=== PATIENT | female | born 1940 | race Caucasian/White ===

== ENCOUNTER → 2019-11-19 18:43 | Outpatient (BNVA) | payer MEDICARE, OTHER, SELFPAY | PROVIDERS: Family Provider Family Medicine; Visit Provider Nurse Practitioner | DX: N39.0 Urinary tract infection, site not specified (principal) | CPT/HCPCS: 81000 ==

== ENCOUNTER 2019-12-27 16:40 | Emergency (ER) | payer MEDICARE, OTHER, SELFPAY ==
[2019-12-27 16:45] VITALS: BP 124/62; PULSE 102; RESP 18; TEMP 36.4; O2SAT 94; BMI 32.3
[2019-12-27 18:38] LABS: Basophils # 0.1 10^3/uL (0.0-0.1); Basophils % 0.4 %; Eosinophils % 0.4 %; Hematocrit 39.7 % (37.0-47.0); Hemoglobin 12.1 g/dL (11.5-15.3); Lymphocytes # 1.3 10^3/uL (0.8-4.8); Lymphocytes % 11.8 %; Mean Corpuscular HGB Conc 30.5 g/dL (30.0-36.0); Mean Corpuscular Hemoglobin 25.9 pg (28.0-34.0); Mean Corpuscular Volume 84.8 fL (81-99); Mean Platelet Volume 9.5 fL (7.4-10.4); Monocytes # 1.4 10^3/uL (0.2-0.9); Monocytes % 12.6 %; Neutrophils # 8.46 10^3/uL (1.8-7.7); Neutrophils % 74.3 %; Nucleated Red Blood Cells % 0 %; Platelet Count 254 10^3/cmm (130-400); Red Blood Count 4.68 10^6/uL (4.1-5.3); Red Cell Distribution Width 16.4 % (12.1-15.1); White Blood Count 11.4 10^3/uL (4.0-10.0)
--- NOTE | 2019-12-27 19:07 | ED_ITS ---
HPI - Nausea/Vomiting/Diarrhea General: Chief complaint: Nausea/Vomiting/Diarrhea Stated complaint: N/D Time Seen by Provider: 12/27/19 18:56 Source: patient Mode of arrival: ambulatory Limitations: no limitations History of Present Illness: HPI Narrative: 79-year-old female who has a history of Crohn's who states she is to be on Humira and her physician stopped her Humira 3 weeks ago and started on Entyvio. She states that since then she has had started her new medicine she has had constant diarrhea for 3 weeks. She states she has had increasing diarrhea over the last 3 weeks but states she has had chronic diarrhea. She believes her new medicine changes made it worse and she is feeling dehydrated. She denies any fever or abdominal pain. MD elicited complaint: nausea Associated nausea: Yes Associated symtoms: Reports nausea; Denies chest pain, dysuria or headache(s) Review of Systems Const: Denies: fever(s), chills, body aches or change in appetite Eyes: Denies: blurry vision or eye discomfort ENMT: Denies: throat pain or dental pain Card: Denies: chest pain Resp: Denies: dyspnea GI: Reports: nausea and diarrhea : Denies: dysuria Musc: Denies: neck pain or back pain Skin/Breast: Denies: rash Neuro: Denies: headache(s) Psych: Denies: depression Nghia/Lymph: Denies: easy bruising All/Imm: Denies: urticaria PFSH ED PFSH: Social History Smoking and tobacco status: never smoked Alcohol intake: never History of recent travel: No Course Vital Signs: Vital signs: Vital Signs Temperature 97.5 F L 12/27/19 16:45 Pulse Rate 94 12/27/19 22:11 Respiratory Rate 16 12/27/19 22:11 Blood Pressure 115/63 12/27/19 22:11 Pulse Oximetry 92 12/27/19 22:11 MDM - Nausea/Vomiting/Diarrhea MDM Narrative: Medical decision making narrative: Patient presents with diarrhea likely medication related. I spoke to GI on-call Dr. Huntley who states that he will leave a note for Dr. Garcia to call patient tomorrow. Patient feels improved here and was given IV fluids. Patient has no signs of C. difficile or stool infection but will test for both. She is stable for discharge and return if worsening. Lab Data: Labs: Lab Results 12/27/19 12/27/19 12/27/19 Range/Units 18:30 18:30 18:30 WBC 11.4 H (4.0-10.0) 10^3/ uL RBC 4.68 (4.1-5.3) 10^6/u L Hgb 12.1 (11.5-15.3) g/dL Hct 39.7 (37.0-47.0) % MCV 84.8 (81-99) fL MCH 25.9 L (28.0-34.0) pg MCHC 30.5 (30.0-36.0) g/dL RDW 16.4 H (12.1-15.1) % Plt Count 254 (130-400) 10^3/c mm MPV 9.5 (7.4-10.4) fL Neut % (Auto) 74.3 % Lymph % (Auto) 11.8 % Schleicher % (Auto) 12.6 % Eos % (Auto) 0.4 % Baso % (Auto) 0.4 % Neut # (Auto) 8.46 H (1.8-7.7) 10^3/u L Lymph # (Auto) 1.3 (0.8-4.8) 10^3/u L Schleicher # (Auto) 1.4 H (0.2-0.9) 10^3/u L Eos # (Auto) 0.0 (0.0-0.8) 10^3/u L Baso # (Auto) 0.1 (0.0-0.1) 10^3/u L Nucleated RBC % (a uto) 0 % Nucleated RBCs # 0.0 /100WBC Sodium 132 L (136-145) mmol/L Potassium 3.3 L (3.5-5.1) mmol/L Chloride 95 L (98-107) mmol/L Carbon Dioxide 22 (22-29) mmol/L Anion Gap 18.3 (5-19) BUN 33 H (8-23) mg/dL Creatinine 1.1 H (0.5-0.9) mg/dL GFR Calculation Not Reportable Glucose 174 H (65-115) mg/dL Calculated Osmolal ity 275 L (285-295) mOsm/k g Lactate 1.8 (0.5-2.2) mmol/L Calcium 9.0 (8.5-10.5) mg/dL Total Bilirubin 1.7 H (0.15-1.2) mg/dL AST 11 (0-32) U/L ALT 13 (0-33) U/L Alkaline Phosphata se 66 (35-105) IU/L Total Protein 7.2 (6.6-8.7) g/dL Albumin 3.7 (3.5-5.2) g/dL Globulin 3.5 (1.3-4.6) g/dL Lipase 9 L (13-60) U/L Discharge Plan Discharge Patient Disposition: Home, Self-Care Clinical Impression: Diarrhea Qualifiers: Diarrhea type: unspecified type Qualified Code(s): R19.7 - Diarrhea, unspecified Condition: Stable Prescriptions: No Action levothyroxine 88 mcg capsule 88 mcg PO DAILY RF: 0 hydrochlorothiazide 25 mg tablet 25 mg PO DAILY RF: 0 Complete Multivitamin Tablet 1 tab PO DAILY RF: 0 latanoprost 0.005 % drops 1 drp ophthalmic (eye) BEDTIME RF: 0 Tylenol 325 mg Tablet 325 mg PO QID PRN (Reason: Pain) RF: 0 prednisone 5 mg tablet See Rx Instructions .ROUTE .COMPLEX RF: 0 Discharge Orders: Discharge Order (Routine); Ordered 12/27/19 Ordered By: Orlin Sánchez Referrals: Vini Ruano Jr, MD [Primary Care Provider] - 1-3 days Discharge Diet: Advance as tolerated Discharge Activity: Resume usual activity Patient Instructions: Chronic Diarrhea (ED) Discharge Date/Time: 12/27/19 22:17 Coding Level of Care Code ED Building Construction Teacher for Leif Joy
[2019-12-27 19:16] LABS: Lactate (Lactic Acid level) 1.8 mmol/L (0.5-2.2)
[2019-12-27 19:23] LABS: Alanine Aminotransferase 13 U/L (0-33); Albumin Level 3.7 g/dL (3.5-5.2); Alkaline Phosphatase 66 IU/L (35-105); Anion Gap 18.3 (5-19); Aspartate Amino Transferase 11 U/L (0-32); Blood Urea Nitrogen 33 mg/dL (8-23); Carbon Dioxide 22 mmol/L (22-29); Chloride 95 mmol/L (98-107); Globulin 3.5 g/dL (1.3-4.6); Glucose 174 mg/dL (65-115); Lipase 9 U/L (13-60); Osmolality Calculated 275 mOsm/kg (285-295); Potassium 3.3 mmol/L (3.5-5.1); Sodium 132 mmol/L (136-145); Total Bilirubin 1.7 mg/dL (0.15-1.2); Total Protein 7.2 g/dL (6.6-8.7)
[2019-12-27 19:44] VITALS: BP 108/62; PULSE 93; RESP 18; O2SAT 91
[2019-12-27] MEDS: sodium chloride 0.9% 1,000 ML 999 ML IV (19:57)
[2019-12-27] MEDS: ondansetron 2 mg/ML SDV 2 mL 4 MG IVP (19:59)
[2019-12-27 20:00] VITALS: BP 125/61; PULSE 87; RESP 16; O2SAT 92
[2019-12-27] MEDS: diphenoxylate/atropine Tablet 1 TAB PO (21:55)
[2019-12-27 22:11] VITALS: BP 115/63; PULSE 94; RESP 16; O2SAT 92
[2019-12-27 22:49] LABS: Add Urine Culture? Yes; Add Urine Microscopic? YES; Bacteria Urine 4+; Bilirubin Urine 1+ (NEGATIVE); Blood Urine 2+ (Negative); Glucose Urine UA Norm (Normal); Hyaline Casts Urine 0-4; Ketones Urine Negative (Negative); Leukocyte Esterase Urine 2+ (Negative); Nitrate Urine Positive (Negative); Protein Urine 1+ (Negative); Urine Appearance Cloudy (CLEAR); Urine Color Yellow (Yellow); Urobilinogen Urine Norm (Negative); WBC Urine >100 /hpf (0-5); pH Urine 5 (5-7)
== END 2019-12-27 22:17 | disposition home or self-care (01) ==
PROVIDERS: Nurse Practitioner Family; Emergency Provider Emergency Medicine; PCP Family Medicine
DX: R19.7 Diarrhea, unspecified (principal); Z79.899 Other long term (current) drug therapy
CPT/HCPCS: 12345; 36415; 80053; 81001; 81003; 83605; 83690; 85025; 87077; 87086; 87186; 87493; 87506; 96360; 96361; 96374; 96375; 99283; J2405; J7030

== ENCOUNTER 2020-02-27 13:21 | Outpatient (CLI) | payer MEDICARE, OTHER, SELFPAY ==
--- NOTE | 2020-02-27 13:26 | XR_ITS ---
WS: [id number] RIGHT HIP HISTORY: PAIN IN RIGHT HIP COMPARISON: None available. Right hip: No acute fracture or dislocation. Moderate narrowing of the RIGHT hip joint. Mild osteophy tic ridging around the acetabulum and osteopenia. Mild narrowing and degenerative changes at the RIGHT SI joint. XR/XR hip RT 2-3V wo/w pel* 70332 IMPRESSION: 1. No hip fracture. 2. Moderate osteoarthritis RIGHT hip joint.
== END 2020-02-27 13:22 | disposition home or self-care (01) ==
LOC: RADWPI 13:25
PROVIDERS: Family Provider Family Medicine; PCP Family Medicine; Visit Provider Family Medicine
DX: M16.11 Unilateral primary osteoarthritis, right hip (principal)
CPT/HCPCS: 73502

== ENCOUNTER → 2020-03-07 16:00 | Outpatient (BNVA) | payer MEDICARE, OTHER, SELFPAY | PROVIDERS: Family Provider Family Medicine; PCP Family Medicine; Visit Provider Nurse Practitioner Family | DX: N39.0 Urinary tract infection, site not specified (principal); R82.71 Bacteriuria | CPT/HCPCS: 80053; 81001 ==

== ENCOUNTER → 2020-04-23 14:14 | Outpatient (BNVA) | payer MEDICARE, OTHER, SELFPAY | PROVIDERS: Family Provider Family Medicine; PCP Family Medicine; Visit Provider Urology | DX: N39.0 Urinary tract infection, site not specified (principal); B37.3 Candidiasis of vulva and vagina | CPT/HCPCS: 81003; 87086 ==

== ENCOUNTER → 2020-06-25 10:45 | Outpatient (BNVA) | payer MEDICARE, OTHER, SELFPAY | PROVIDERS: Family Provider Family Medicine; PCP Nurse Practitioner; Visit Provider Urology | DX: N39.0 Urinary tract infection, site not specified (principal) | CPT/HCPCS: 81003 ==

== ENCOUNTER → 2020-09-25 10:57 | Outpatient (BNVA) | payer MEDICARE, OTHER, SELFPAY | PROVIDERS: Family Provider Family Medicine; PCP Nurse Practitioner; Visit Provider Urology | DX: N39.0 Urinary tract infection, site not specified (principal) | CPT/HCPCS: 81003 ==

== ENCOUNTER → 2021-03-13 13:53 | Outpatient (BNVA) | payer MEDICARE, OTHER, SELFPAY | PROVIDERS: Family Provider Family Medicine; PCP Nurse Practitioner; Visit Provider Podiatrist Foot & Ankle Surgery | DX: M20.42 Other hammer toe(s) (acquired), left foot (principal); M19.072 Primary osteoarthritis, left ankle and foot | CPT/HCPCS: 73630 ==

== ENCOUNTER → 2021-04-14 08:02 | Outpatient (BNVA) | payer MEDICARE, OTHER, SELFPAY | PROVIDERS: Family Provider Family Medicine; PCP Nurse Practitioner; Visit Provider Podiatrist Foot & Ankle Surgery | DX: Z01.818 Encounter for other preprocedural examination (principal); Z20.822 Contact with and (suspected) exposure to COVID-19; M89.8X7 Other specified disorders of bone, ankle and foot; M20.42 Other hammer toe(s) (acquired), left foot; M79.672 Pain in left foot | CPT/HCPCS: 87635 ==

== ENCOUNTER 2021-04-18 06:26 | Day surgery (SDC) | payer MEDICARE, OTHER, SELFPAY ==
[2021-04-17 16:34] VITALS: BMI 32.3
--- NOTE | 2021-04-18 | SCC_ITS ---
Procedure Done: Exostectomy left foot CPT 74087 Left second hammertoe correction CPT 87874 Left second toenail avulsion CPT code 64469 1 second of fluoroscopic guidance, for a cumulative dose of 0.010 mGy, was provided to Dr. Huizar by the radiology department. C-arm images of the left toes were saved for the patient's permanent record. [facility]
[2021-04-18 06:37] VITALS: BP 128/92; PULSE 65; RESP 16; TEMP 36.6; O2SAT 96
--- NOTE | 2021-04-18 07:19 | ANES.PREANE2 ---
Pre-Anesthetic Assessment Pre-Anesthetic Assessment: Height/Weight: Height 1.68 m Weight 90.718 kg Temp Pulse Resp BP Pulse Ox 97.8 F 65 16 128/92 96 04/18/21 06:37 04/18/21 06:37 04/18/21 06:37 04/18/21 06:37 04/18/21 06:37 Preop Diagnosis: Second hammertoe, exostosis and onychodystrophy all left foot Proposed Procedure: Operation Date: 04/18/21 07:50 Proposed Procedures p Hammertoe Correction 2nd toe(Left) - Tulio Huizar DPM s Exostectomy(Left) - [place] Ignacio Matrixectomy(Left) - Tulio Huizar DPM Familial anesthetic complications: none Was Beta Kenyon taken within 24 hours: N/A Was Clonidine taken within 24 hours: N/A Last intake: Intake Last Liquid Date 04/17/21 Last Liquid Time 17:30 Last Solid Date 04/17/21 Last Solid Time 17:30 Social: Social History: No alcohol and No tobacco Exam: Pre-Anes Outpt Exam: alert, oriented x 3, clear to auscultation bilaterally and regular rate & rhythm Airway: Cervical ROM: WNL MP: 4 Dentition: False and Partials Additional comments: small mouth opening CV/HEM: CV/HEM: HTN GI: Comments: crohn's disease Metabolic: Metabolic: Thyroid Anesthetic Plan: ASA status: 3 Anesthesia: MAC Risk of > 500 ml blood loss (7ml/kg in children): No PFSH Anesthesia PFSH: Medical History Atrophic vaginitis Crohn's colitis Diverticulosis HTN (hypertension) Hypothyroidism Recurrent UTI Yeast vaginitis Surgical History H/O: hysterectomy History of eyelid surgery Hx of appendectomy Hx of cataract surgery Hx of colectomy Hx of thyroidectomy Hx of total knee arthroplasty S/P cholecystectomy Family History Father , at age 78 CHF (congestive heart failure) Mother , at age 104 No problems noted. Social History Alcohol intake: never Marital status: Current occupational status: retired History of recent travel: No Data Anesthesia Cardiac Studies: No Data to Display
[2021-04-18] MEDS: sodium chloride 0.9% 1,000 ML 30 ML IV (07:22)
--- NOTE | 2021-04-18 07:36 | W.PM.OPSUD ---
Surgery/Procedure H&P Update DATE OF PROCEDURE: April 18, 2021 DATE H&P PERFORMED: 04/14/21 H&P UPDATE INFORMATION: I have reviewed H&P completed within last 30 days, I have examined patient prior to procedure, No changes to prior documentation and H&P is in [facility] EMR on date indicated PREOP DIAGNOSIS: Second hammertoe, exostosis and onychodystrophy all left foot PLANNED PROCEDURE: Operation Date: 04/18/21 07:50 Proposed Procedures p Hammertoe Correction 2nd toe(Left) - Tulio Huizar DPM s Exostectomy(Left) - [place] Ignacio Matrixectomy(Left) - Tulio Huizar DPM
[2021-04-18] MEDS: lidocaine 1% INJ 20 mL INJECTION (08:27)
[2021-04-18 08:39] LABS: Anion Gap 16.5 (5-19); Blood Urea Nitrogen 27 mg/dL (8-23); Calcium 8.7 mg/dL (8.5-10.5); Carbon Dioxide 22 mmol/L (22-29); Chloride 101 mmol/L (98-107); Creatinine Clr Calc Pharmacy 61.5113; Glucose 126 mg/dL (65-115); Osmolality Calculated 287 mOsm/kg (285-295); Potassium 4.5 mmol/L (3.5-5.1); Sodium 135 mmol/L (136-145)
[2021-04-18 09:00] VITALS: BP 121/66; PULSE 68; RESP 15; TEMP 36.6; O2SAT 93
--- NOTE | 2021-04-18 09:03 | XR_ITS ---
WS: [id number] Left foot, 3 views, 04/18/2021 Clinical Data: post op Comparison: Left foot, 03/13/2021. Findings: No fractures or dislocations are seen. No bone destruction or erosion is noted. The patient has a sup port surrounding the foot. Toes are in extension.A plantar spur and small Achilles spur are seen nia jenkins XR/XR foot LT min 3V* [id number] Impression: Toes of the left foot are in extension.
[2021-04-18 09:05] VITALS: BP 126/67; PULSE 65; RESP 18; O2SAT 93
--- NOTE | 2021-04-18 09:08 | P.OP_ITS ---
Operative Report Date of procedure: April 18, 2021 Pre-op Diagnosis: Second hammertoe, exostosis and onychodystrophy all left foot Post-op diagnosis: same Procedure Done: Exostectomy left foot CPT 42972 Left second hammertoe correction CPT 56051 Left second toenail avulsion CPT code 33137 Implants: 3-0 Vicryl, 4-0 Vicryl, 4-0 nylon, Pinehill 28 Hammer tube 2.75 mm 0 degree Pathology: none sent Surgeon: Tulio Huizar D.P.M. Weight Loss Sales Consultant: Inge Anesthesia: MAC Estimated blood loss: 5 Tourniquet time: 31 IV fluids: 0 Urine output: 0 Complications: None Findings: None Condition: stable Disposition: PACU Brief History: Patient is a pleasant 80-year-old female has had persistent pain at her left second hammer toe with everyday activities she also has a painful bump at the dorsum of her left midfoot and a dystrophic left second toenail. Would like to have each of these addressed surgically as she has failed conservative measures consisting of rest, activity modifications, shoe gear modification with extra-depth and with, padding and spacing and anti- inflammatories. Risks include pain, bleeding, numbness, infection, hardware failure, delayed union, malunion, nonunion recurrence of deformity and recurrence of exostosis, expecting regrowth of toenail to be similar to previous growth as this was a toenail avulsion only. Patient is agreeable wishes to proceed, informed consent signed by patient and myself, I initialed her left foot, no guarantees written, expressed or implied, Covid screening negative. Procedure: Under mild sedation the patient was brought to the operating room and remained on the gurney in supine position. A timeout was performed. Anesthesia was then administered by the anesthesia service. Local anesthesia injected by myself consisting of 30 cc of 1% lidocaine and 0.5% Marcaine in a one-to-one mixture this was then a proximal Beltran block and second ray block of the left foot. Well-padded pneumatic tourniquet applied to the left ankle. Left lower extremity was then scrubbed, prepped and draped utilizing normal aseptic technique. Foot and ankle wrapped at the left lower extremity with an Esmarch bandage and the tourniquet inflated to 250 mmHg. Attention was directed to the left dorsal foot where an osseous exostosis was palpated and visualized at the base of the first metatarsal medial cuneiform joint directly over this exostosis a linear longitudinal incision made with a #15 blade. Dissection was carried down to periosteum utilizing accommodation of blunt and sharp technique. Care was taken to retract and preserve neurovascular and tendinous structures. All bleeders were ligated and cauterized as necessary. Periosteal incision was made and bony exostosis was excised with a osteotome smoothed with a bone rasp and passed from operative field. Incision was flushed with saline solution and closed in a layered fashion with 3-0 Vicryl periosteum, 4-0 Vicryl in subcutaneous tissue and 4-0 nylon at skin. Attention was directed to the dorsal aspect of the left second toe where 2 semielliptical incisions converging were performed with a skin bridge being excised and a transverse tenotomy and capsulotomy at the proximal interphalangeal joint head of the proximal phalanx was freed from its soft tissue attachments and transected perpendicular to its longitudinal axis followed by the base of the intermediate phalanx incision was flushed with saline solution followed by arthrodesis with excellent bony apposition and compression noted utilizing a [place]hill 28 hammer tube 2.75 mm 0 degree. Positioning confirmed with fluoroscopy noted to be excellent in all 3 planes. Incision was then flushed with saline solution, extensor tendon reapproximated with 4-0 Vicryl and skin closed with 4-0 nylon. Attention was then directed to the distal aspect of the left second toe where a Marianna elevator was utilized to free the left second toenail of soft tissue attachments this was avulsed in total and passed from the operative field. Incision sites were dressed with Adaptic, sterile 4 x 4, Kerlix, Vicente wrap. Tourniquet was deflated and a prompt hyperemic response was noted to the distal digits of the left foot. Patient tolerated the procedure and anesthesia well was transferred to the PACU with vital signs stable vascular status intact. Following a period of postoperative monitoring she will be discharged home may be protected weightbearing with a postop shoe was given at home discharge instructions at home care and follow-up next Wednesday at 8 AM in podiatry clinic for her first dressing change. Was prescribed hydrocodone 10/325 mg to be taken judiciously as needed for pain every 6 hours. This was sent electronically to [facility].
[2021-04-18 09:10] VITALS: BP 134/79; PULSE 70; RESP 22; TEMP 36.7; O2SAT 95
[2021-04-18 09:16] VITALS: BP 134/79; PULSE 68; RESP 16; TEMP 36.3; O2SAT 95
[2021-04-18 09:40] VITALS: BP 133/62; PULSE 62; RESP 18; TEMP 36.4; O2SAT 97
--- NOTE | 2021-04-18 10:34 | ECG_ITS ---
[facility] Test Date: 2021-04-18 Pat Name: Bibi Billings Department: Room: Gender: Female End Trimmer: : 1940 Requested By: Estelita Dutotn Order Number: [id number] Vini MD: Jose Wong M.D. Measurements Intervals [place] Rate: 66 P: 61 MI: 175 QRS: -13 QRSD: 90 T: 11 QT: 412 QTc: 433 Interpretive Statements SINUS RHYTHM LOW QRS VOLTAGE IN PRECORDIAL LEADS [QRS DEFLECTION < 1.0 mV IN CHEST LEADS] Compared to ECG 04/16/2018 23:21:39 Sinus bradycardia no longer present Electronically Signed On 04-18-2021 19:51:46 DIGITAL PRINTER by Jose Wong M.D. [id number]
--- NOTE | 2021-04-18 14:19 | ANE.PACU2 ---
Inpatient post-anesthesia follow up: Airway intact: Yes Vital signs: Temperature 97.6 F Pulse Rate 62 Respiratory Rate 18 Blood Pressure 133/62 Pulse Oximetry 97 Oxygen Delivery Me thod Room Air Oxygen Flow Rate Fraction of Inspir ed Oxygen Hydration adequate: Yes Nausea and vomiting: No Pain level: 2 Mental status: Baseline
== END 2021-04-18 09:55 | disposition home or self-care (01) ==
PROVIDERS: Anesthesiology; PCP Nurse Practitioner; Visit Provider Podiatrist Foot & Ankle Surgery
PROC: (CPT 28285; principal; 2021-04-18 07:45)
PROC: (CPT 28288; 2021-04-18 07:45)
PROC: (CPT 11750; 2021-04-18 07:45)
DX: M79.672 Pain in left foot (principal); M89.8X7 Other specified disorders of bone, ankle and foot; L60.3 Nail dystrophy; I10 Essential (primary) hypertension; E03.9 Hypothyroidism, unspecified
CPT/HCPCS: 11730; 28288; 28308; 73630; 76000; 80048; 93005; C1713; J0690; J2704; J3010; J3490; J7030

== ENCOUNTER → 2021-05-06 13:04 | Outpatient (BNVA) | payer MEDICARE, OTHER, SELFPAY | PROVIDERS: PCP Nurse Practitioner; Visit Provider Podiatrist Foot & Ankle Surgery | DX: Z98.890 Other specified postprocedural states (principal) | CPT/HCPCS: 73630 ==

== ENCOUNTER → 2021-05-22 11:11 | Outpatient (BNVA) | payer MEDICARE, OTHER, SELFPAY | PROVIDERS: PCP Nurse Practitioner; Visit Provider Podiatrist Foot & Ankle Surgery | DX: Z48.89 Encounter for other specified surgical aftercare (principal); Z98.890 Other specified postprocedural states; M20.42 Other hammer toe(s) (acquired), left foot; M89.8X7 Other specified disorders of bone, ankle and foot | CPT/HCPCS: 73630 ==

== ENCOUNTER → 2021-06-05 14:03 | Outpatient (BNVA) | payer MEDICARE, OTHER, SELFPAY | PROVIDERS: PCP Nurse Practitioner; Visit Provider Podiatrist Foot & Ankle Surgery | DX: Z98.890 Other specified postprocedural states (principal); Z98.1 Arthrodesis status | CPT/HCPCS: 73630 ==

== ENCOUNTER → 2021-07-14 09:35 | Outpatient (BNVA) | payer MEDICARE, OTHER, SELFPAY | PROVIDERS: PCP Nurse Practitioner; Visit Provider Podiatrist Foot & Ankle Surgery | DX: Z98.890 Other specified postprocedural states (principal) | CPT/HCPCS: 73630 ==

== ENCOUNTER → 2022-04-07 10:57 | Outpatient (BNVA) | payer MEDICARE, OTHER, SELFPAY | PROVIDERS: PCP Nurse Practitioner; Visit Provider Urology | DX: R33.9 Retention of urine, unspecified (principal); N39.0 Urinary tract infection, site not specified | CPT/HCPCS: 81003; 87086; 99213 ==

== ENCOUNTER → 2022-04-14 10:51 | Day surgery (SDC) | payer MEDICARE, OTHER, SELFPAY ==
[2022-04-14 11:00] VITALS: BP 131/65; PULSE 76; RESP 18; TEMP 36.8; O2SAT 100
[2022-04-14] MEDS: ferric carboxy (IVPB) 750 MG in sodium chloride 0.9% (100 ml) 100 ML 275 MG IV (11:48)
== END ==
PROVIDERS: PCP Nurse Practitioner; Visit Provider Family Medicine
DX: D64.9 Anemia, unspecified (principal)
CPT/HCPCS: 96365; J1439

== ENCOUNTER → 2022-04-21 10:29 | Day surgery (SDC) | payer MEDICARE, OTHER, SELFPAY ==
[2022-04-21 10:40] VITALS: BP 140/70; PULSE 72; RESP 18; TEMP 36.3; O2SAT 99
[2022-04-21] MEDS: ferric carboxy (IVPB) 750 MG in sodium chloride 0.9% (100 ml) 100 ML 345 MG IV (10:49)
== END ==
PROVIDERS: PCP Family Medicine; Visit Provider Family Medicine
DX: D64.9 Anemia, unspecified (principal)
CPT/HCPCS: 96365; J1439

== ENCOUNTER → 2022-06-30 09:23 | Outpatient (BNVA) | payer MEDICARE, OTHER, SELFPAY | PROVIDERS: PCP Family Medicine; Visit Provider Podiatrist Foot & Ankle Surgery | DX: I73.9 Peripheral vascular disease, unspecified (principal); L97.521 Non-pressure chronic ulcer of other part of left foot limited to breakdown of skin; L60.3 Nail dystrophy | CPT/HCPCS: 99213 ==

== ENCOUNTER → 2022-09-30 12:49 | Outpatient (BNVA) | payer MEDICARE, OTHER, SELFPAY | PROVIDERS: PCP Family Medicine; Visit Provider Podiatrist Foot & Ankle Surgery | DX: I73.9 Peripheral vascular disease, unspecified (principal); L60.8 Other nail disorders; L60.3 Nail dystrophy; L84 Corns and callosities | CPT/HCPCS: 11721 ==

== ENCOUNTER → 2022-11-25 13:11 | Outpatient (BNVA) | payer MEDICARE, OTHER, MEDICAID, SELFPAY | PROVIDERS: PCP Family Medicine; Visit Provider Podiatrist Foot & Ankle Surgery | DX: I73.9 Peripheral vascular disease, unspecified (principal); L60.8 Other nail disorders; L60.3 Nail dystrophy; L84 Corns and callosities | CPT/HCPCS: 11055; 11721 ==

== ENCOUNTER → 2023-01-18 13:40 | Outpatient (BNVA) | payer MEDICARE, MEDICAID, SELFPAY | PROVIDERS: PCP Family Medicine; Visit Provider Dermatology | DX: L82.1 Other seborrheic keratosis (principal); L81.4 Other melanin hyperpigmentation; D18.01 Hemangioma of skin and subcutaneous tissue; L91.8 Other hypertrophic disorders of the skin; L85.3 Xerosis cutis | CPT/HCPCS: 99213 ==

== ENCOUNTER → 2023-03-10 15:27 | Outpatient (BNVA) | payer MEDICARE, MEDICAID, SELFPAY | PROVIDERS: PCP Family Medicine; Visit Provider Podiatrist Foot & Ankle Surgery | DX: L60.8 Other nail disorders (principal); L60.3 Nail dystrophy; I73.9 Peripheral vascular disease, unspecified | CPT/HCPCS: 11721 ==

== ENCOUNTER → 2023-06-10 10:15 | Outpatient (BNVA) | payer MEDICARE, MEDICAID, SELFPAY | PROVIDERS: PCP Family Medicine; Visit Provider Dermatology | DX: L30.0 Nummular dermatitis (principal); L57.0 Actinic keratosis; L81.4 Other melanin hyperpigmentation; D18.01 Hemangioma of skin and subcutaneous tissue; L57.8 Other skin changes due to chronic exposure to nonionizing radiation | CPT/HCPCS: 17000; 99214 ==

== ENCOUNTER → 2023-07-06 11:03 | Outpatient (BNVA) | payer MEDICARE, MEDICAID, SELFPAY | PROVIDERS: PCP Family Medicine; Visit Provider Podiatrist Foot & Ankle Surgery | DX: L60.3 Nail dystrophy (principal); I73.9 Peripheral vascular disease, unspecified; L84 Corns and callosities | CPT/HCPCS: 11055; 11721 ==

== ENCOUNTER → 2023-09-15 14:28 | Outpatient (BNVA) | payer MEDICARE, MEDICAID, SELFPAY | PROVIDERS: PCP Family Medicine; Visit Provider Dermatology | DX: L30.9 Dermatitis, unspecified (principal); L30.4 Erythema intertrigo; L88 Pyoderma gangrenosum; L81.4 Other melanin hyperpigmentation | CPT/HCPCS: 99214 ==

== ENCOUNTER → 2023-09-29 15:19 | Outpatient (BNVA) | payer MEDICARE, MEDICAID, SELFPAY | PROVIDERS: PCP Family Medicine; Visit Provider Podiatrist Foot & Ankle Surgery | DX: L60.3 Nail dystrophy (principal); I73.9 Peripheral vascular disease, unspecified; L84 Corns and callosities | CPT/HCPCS: 11055; 11721 ==

== ENCOUNTER → 2023-10-06 14:03 | Outpatient (BNVA) | payer MEDICARE, MEDICAID, SELFPAY | PROVIDERS: PCP Family Medicine; Visit Provider Dermatology | DX: L30.4 Erythema intertrigo (principal); L88 Pyoderma gangrenosum | CPT/HCPCS: 99214 ==

== ENCOUNTER → 2023-11-17 13:42 | Outpatient (BNVA) | payer MEDICARE, MEDICAID, SELFPAY | PROVIDERS: PCP Family Medicine; Visit Provider Dermatology | DX: L30.4 Erythema intertrigo (principal); L88 Pyoderma gangrenosum | CPT/HCPCS: 99214 ==

== ENCOUNTER → 2023-12-29 15:07 | Outpatient (BNVA) | payer MEDICARE, MEDICAID, SELFPAY | PROVIDERS: PCP Family Medicine; Visit Provider Podiatrist Foot & Ankle Surgery | DX: L60.3 Nail dystrophy (principal); I73.9 Peripheral vascular disease, unspecified; L84 Corns and callosities | CPT/HCPCS: 11055; 11721 ==

== ENCOUNTER → 2024-01-31 13:01 | Outpatient (BNVA) | payer MEDICARE, MEDICAID, SELFPAY | PROVIDERS: PCP Family Medicine; Visit Provider Thoracic Surgery (Cardiothoracic Vascular Surgery) | DX: L88 Pyoderma gangrenosum (principal) | CPT/HCPCS: 97597; 99203; 99213; A6210 ==

== ENCOUNTER → 2024-02-14 09:50 | Outpatient (BNVA) | payer MEDICARE, MEDICAID, SELFPAY | PROVIDERS: PCP Family Medicine; Visit Provider Thoracic Surgery (Cardiothoracic Vascular Surgery) | DX: I96 Gangrene, not elsewhere classified (principal); L88 Pyoderma gangrenosum | CPT/HCPCS: 97597 ==

== ENCOUNTER → 2024-02-21 08:58 | Outpatient (BNVA) | payer MEDICARE, MEDICAID, SELFPAY | PROVIDERS: PCP Family Medicine; Visit Provider Thoracic Surgery (Cardiothoracic Vascular Surgery) | DX: I96 Gangrene, not elsewhere classified (principal); L88 Pyoderma gangrenosum | CPT/HCPCS: 97597 ==

== ENCOUNTER → 2024-02-28 13:44 | Outpatient (BNVA) | payer MEDICARE, MEDICAID, SELFPAY | PROVIDERS: PCP Family Medicine; Visit Provider Thoracic Surgery (Cardiothoracic Vascular Surgery) | DX: I96 Gangrene, not elsewhere classified (principal); L88 Pyoderma gangrenosum; L97.111 Non-pressure chronic ulcer of right thigh limited to breakdown of skin; L97.121 Non-pressure chronic ulcer of left thigh limited to breakdown of skin; L98.491 Non-pressure chronic ulcer of skin of other sites limited to breakdown of skin | CPT/HCPCS: 97597; A6197 ==

== ENCOUNTER → 2024-03-06 10:27 | Outpatient (BNVA) | payer MEDICARE, MEDICAID, SELFPAY | PROVIDERS: PCP Family Medicine; Visit Provider Thoracic Surgery (Cardiothoracic Vascular Surgery) | DX: I96 Gangrene, not elsewhere classified (principal); L88 Pyoderma gangrenosum; L97.111 Non-pressure chronic ulcer of right thigh limited to breakdown of skin; L97.121 Non-pressure chronic ulcer of left thigh limited to breakdown of skin; L98.491 Non-pressure chronic ulcer of skin of other sites limited to breakdown of skin | CPT/HCPCS: 97597; A6197 ==

== ENCOUNTER → 2024-03-13 11:08 | Outpatient (BNVA) | payer MEDICARE, MEDICAID, SELFPAY | PROVIDERS: PCP Family Medicine; Visit Provider Thoracic Surgery (Cardiothoracic Vascular Surgery) | DX: L88 Pyoderma gangrenosum (principal); L97.121 Non-pressure chronic ulcer of left thigh limited to breakdown of skin; L97.111 Non-pressure chronic ulcer of right thigh limited to breakdown of skin; L98.491 Non-pressure chronic ulcer of skin of other sites limited to breakdown of skin | CPT/HCPCS: 97597; A6197 ==

== ENCOUNTER → 2024-03-27 10:39 | Outpatient (BNVA) | payer MEDICARE, MEDICAID, SELFPAY | PROVIDERS: PCP Family Medicine; Visit Provider Thoracic Surgery (Cardiothoracic Vascular Surgery) | DX: L88 Pyoderma gangrenosum (principal); L97.111 Non-pressure chronic ulcer of right thigh limited to breakdown of skin; L97.121 Non-pressure chronic ulcer of left thigh limited to breakdown of skin; L98.491 Non-pressure chronic ulcer of skin of other sites limited to breakdown of skin | CPT/HCPCS: 97597; A6210 ==

== ENCOUNTER → 2024-03-29 12:52 | Outpatient (BNVA) | payer MEDICARE, MEDICAID, SELFPAY | PROVIDERS: PCP Family Medicine; Visit Provider Podiatrist Foot & Ankle Surgery | DX: L60.8 Other nail disorders (principal); L60.3 Nail dystrophy; I73.9 Peripheral vascular disease, unspecified; L84 Corns and callosities | CPT/HCPCS: 11721 ==

== ENCOUNTER → 2024-04-06 15:17 | Outpatient (BNVA) | payer MEDICARE, MEDICAID, SELFPAY | PROVIDERS: PCP Family Medicine; Visit Provider Dermatology | DX: L30.9 Dermatitis, unspecified (principal) | CPT/HCPCS: 11102; 99214 ==

== ENCOUNTER → 2024-04-20 14:24 | Outpatient (BNVA) | payer MEDICARE, MEDICAID, SELFPAY | PROVIDERS: PCP Family Medicine; Visit Provider Dermatology | DX: L88 Pyoderma gangrenosum (principal) | CPT/HCPCS: 99214 ==

== ENCOUNTER → 2024-07-03 09:49 | Outpatient (BNVA) | payer MEDICARE, MEDICAID, SELFPAY | PROVIDERS: PCP Family Medicine; Visit Provider Podiatrist Foot & Ankle Surgery | DX: L60.8 Other nail disorders (principal); L60.3 Nail dystrophy; I73.9 Peripheral vascular disease, unspecified; L84 Corns and callosities | CPT/HCPCS: 11055; 11721 ==

== ENCOUNTER → 2024-07-06 14:48 | Outpatient (BNVA) | payer MEDICARE, MEDICAID, SELFPAY | PROVIDERS: PCP Family Medicine; Visit Provider Dermatology | DX: L30.0 Nummular dermatitis (principal); L88 Pyoderma gangrenosum; Z48.817 Encounter for surgical aftercare following surgery on the skin and subcutaneous tissue | CPT/HCPCS: 99214 ==

== ENCOUNTER → 2024-07-24 11:01 | Outpatient (BNVA) | payer MEDICARE, MEDICAID, SELFPAY | PROVIDERS: PCP Family Medicine; Visit Provider Nurse Practitioner | DX: M18.11 Unilateral primary osteoarthritis of first carpometacarpal joint, right hand (principal); M18.12 Unilateral primary osteoarthritis of first carpometacarpal joint, left hand | CPT/HCPCS: 73130 ==

== ENCOUNTER 2024-07-24 12:16 | Outpatient (CLI) | payer MEDICARE, MEDICAID, SELFPAY | END 2024-07-24 12:17 | disposition home or self-care (01) | LOC: SPT 12:17 | PROVIDERS: PCP Family Medicine; Visit Provider Nurse Practitioner | DX: Z46.89 Encounter for fitting and adjustment of other specified devices (principal); M18.11 Unilateral primary osteoarthritis of first carpometacarpal joint, right hand | CPT/HCPCS: 20600; 97760; J1100; J2795; J3301; L3924 ==

== ENCOUNTER → 2024-10-02 09:58 | Outpatient (BNVA) | payer OTHER, MEDICAID, SELFPAY | PROVIDERS: PCP Family Medicine; Visit Provider Podiatrist Foot & Ankle Surgery | DX: I73.9 Peripheral vascular disease, unspecified (principal); L60.8 Other nail disorders; L84 Corns and callosities; L60.3 Nail dystrophy | CPT/HCPCS: 11055; 11721 ==

== ENCOUNTER → 2024-10-20 10:33 | Outpatient (BNVA) | payer OTHER, MEDICAID, SELFPAY | PROVIDERS: PCP Family Medicine; Visit Provider Nurse Practitioner | DX: M18.11 Unilateral primary osteoarthritis of first carpometacarpal joint, right hand (principal) | CPT/HCPCS: 20600; 99213; J1100; J2795; J3301; J9999 ==

== ENCOUNTER → 2024-11-22 09:47 | Outpatient (BNVA) | payer OTHER, MEDICAID, SELFPAY | PROVIDERS: PCP Family Medicine; Visit Provider Nurse Practitioner Family | DX: L30.0 Nummular dermatitis (principal); D22.5 Melanocytic nevi of trunk | CPT/HCPCS: 99213 ==

== ENCOUNTER → 2025-01-01 10:19 | Outpatient (BNVA) | payer OTHER, MEDICAID, SELFPAY | PROVIDERS: PCP Family Medicine; Visit Provider Podiatrist Foot & Ankle Surgery | DX: E11.8 Type 2 diabetes mellitus with unspecified complications (principal); L60.3 Nail dystrophy; L84 Corns and callosities; L60.8 Other nail disorders; I73.9 Peripheral vascular disease, unspecified | CPT/HCPCS: 11721 ==

== ENCOUNTER 2025-01-18 14:42 | Outpatient (CLI) | payer OTHER, MEDICAID, SELFPAY ==
--- NOTE | 2025-01-18 15:00 | XR_ITS ---
WS: [id number] DEXA (DUAL ENERGY X-RAY ABSORPTIOMETRY) Bone mineral density was performed using a Fisoc machine. HISTORY: postmenopausal COMPARISON: None available. Lumbar spine BMD (L1-L4): 1.303 T score: 0.9 Z score: 2.3 Total hip BMD: Left: 0.790 g/cm2. T score: -1.7 Z score: 0.3 Right: 0.781 g/cm2. T score: -1.8 Z score: 0.2 10 year probability of a major osteoporotic fracture is 35.4%. XR/XR DEXA axial skeleton* 82972 IMPRESSION: OSTEOPENIA based upon the WHO classification for females.
== END 2025-01-18 14:43 | disposition home or self-care (01) ==
LOC: RAD 14:43
PROVIDERS: PCP Family Medicine; Visit Provider Family Medicine
DX: Z13.820 Encounter for screening for osteoporosis (principal); Z78.0 Asymptomatic menopausal state; M85.89 Other specified disorders of bone density and structure, multiple sites
CPT/HCPCS: 77080

== ENCOUNTER → 2025-01-26 10:25 | Outpatient (BNVA) | payer OTHER, MEDICAID, SELFPAY | PROVIDERS: PCP Family Medicine; Visit Provider Nurse Practitioner | DX: M18.11 Unilateral primary osteoarthritis of first carpometacarpal joint, right hand (principal); Z71.89 Other specified counseling | CPT/HCPCS: 20600 ==

== ENCOUNTER → 2025-03-19 11:35 | Outpatient (BNVA) | payer OTHER, MEDICAID, SELFPAY | PROVIDERS: PCP Family Medicine; Visit Provider Dermatology | DX: L88 Pyoderma gangrenosum (principal); L30.4 Erythema intertrigo | CPT/HCPCS: 99214 ==

== ENCOUNTER → 2025-03-30 14:58 | Outpatient (BNVA) | payer OTHER, MEDICAID, SELFPAY | PROVIDERS: PCP Family Medicine; Visit Provider Family Medicine | DX: I10 Essential (primary) hypertension (principal); E89.0 Postprocedural hypothyroidism; R73.03 Prediabetes; D50.9 Iron deficiency anemia, unspecified; K50.119 Crohn's disease of large intestine with unspecified complications | CPT/HCPCS: 80053; 83036; 83540; 84439; 84443; 85025 ==

== ENCOUNTER → 2025-04-17 10:34 | Outpatient (BNVA) | payer OTHER, MEDICAID, SELFPAY | PROVIDERS: PCP Family Medicine; Visit Provider Podiatrist Foot & Ankle Surgery | DX: I73.9 Peripheral vascular disease, unspecified (principal); L60.3 Nail dystrophy; L84 Corns and callosities | CPT/HCPCS: 11055; 11721 ==

== ENCOUNTER → 2025-05-07 10:25 | Outpatient (BNVA) | payer OTHER, MEDICAID, SELFPAY | PROVIDERS: PCP Family Medicine; Visit Provider Dermatology | DX: L88 Pyoderma gangrenosum (principal); L30.4 Erythema intertrigo | CPT/HCPCS: 99214 ==

== ENCOUNTER → 2025-05-11 10:19 | Outpatient (BNVA) | payer OTHER, MEDICAID, SELFPAY | PROVIDERS: PCP Family Medicine; Visit Provider Nurse Practitioner | DX: M18.11 Unilateral primary osteoarthritis of first carpometacarpal joint, right hand (principal) | CPT/HCPCS: 99213 ==